=== PATIENT | male | born 1960 | race Caucasian/White ===

== ENCOUNTER 2023-09-25 02:07 | Emergency (ER) | payer OTHER, SELFPAY ==
[2023-09-25 02:10] VITALS: BP 147/99; PULSE 80; RESP 16; TEMP 36.6; O2SAT 98; BMI 27.7
== END 2023-09-25 04:17 | disposition home or self-care (01) ==
PROVIDERS: Emergency Provider Family Medicine
DX: Z53.21 Procedure and treatment not carried out due to patient leaving prior to being seen by health care provider (principal)